=== PATIENT | male | born 1985 | race Caucasian/White ===

== ENCOUNTER 2018-04-03 14:15 | Emergency (ER) | payer BC, OTHER ==
[2018-04-03] MEDS ORDERED: Bacitracin Zinc 1 Packet ONE (14:36)
[2018-04-03] MEDS ORDERED: Adacel (T-DAP) 0.5 ML VIAL ONE (14:41)
== END 2018-04-03 14:59 | disposition home or self-care (01) ==
LOC: BURERS 14:15
DX: L02.212 Cutaneous abscess of back [any part, except buttock and flank] (principal); Z79.899 Other long term (current) drug therapy
CPT/HCPCS: 10060; 87070; 87205; 90471; 90715

== ENCOUNTER 2020-03-13 05:37 | Emergency (ER) | payer BC ==
[2020-03-13] MEDS ORDERED: Lidocaine 1% PF 5 ML VIAL ONE (06:00)
[2020-03-13] MEDS ORDERED: Bacitracin 1 PK ONE (06:01)
== END 2020-03-13 06:18 | disposition home or self-care (01) ==
LOC: BURERS 05:37
DX: L03.011 Cellulitis of right finger (principal); R73.03 Prediabetes; Z79.84 Long term (current) use of oral hypoglycemic drugs
CPT/HCPCS: 10060

== ENCOUNTER 2020-11-23 11:06 | Outpatient (CLI) | payer BC | END 2020-11-23 11:07 | disposition home or self-care (01) | LOC: BURRAD 11:06 | PROVIDERS: ATTEND Physician Assistant | DX: R20.2 Paresthesia of skin (principal) | CPT/HCPCS: 72040 ==

== ENCOUNTER 2022-07-12 17:07 | Emergency (ER) | payer BC | END 2022-07-12 17:35 | disposition home or self-care (01) | LOC: BURERS 17:07 | DX: M62.838 Other muscle spasm (principal); E66.9 Obesity, unspecified; F17.290 Nicotine dependence, other tobacco product, uncomplicated | CPT/HCPCS: 99283 ==

== ENCOUNTER 2025-07-25 14:23 | Emergency (ER) | payer BC ==
[2025-07-25 15:15] LABS: #Basophils 0.1 thou/uL (0.0-0.2); #Eosinophils 0.1 thou/uL (0.0-0.7); #Lymphocytes 2.2 thou/uL (1.20-3.40); #Monocytes 0.5 thou/uL (0.11-0.59); #Neutrophils 6.4 thou/uL (1.40-6.50); %Basophils 0.7 % (0.0-1.0); %Eosinophils 1.2 % (0.0-10.0); %Lymphocytes 24.1 % (21.0-51.0); %Monocytes 5.3 % (0.0-10.0); %Neutrophils 68.7 % (42.0-75.0); Hematocrit 46.9 % (42.0-52.0); Hemoglobin 15.2 g/dL (14.0-18.0); Mean Corpuscular Hemoglobin 27.8 pg (27.0-31.0); Mean Corpuscular Volume 85.8 fl (78.0-98.0); Platelet Count 358 10x3/uL (130-400); Red Blood Cell (RBC) Count 5.46 mill/uL (4.70-6.10); White Blood Cell (WBC) Count 9.3 10x3/uL (4.8-10.8)
[2025-07-25 15:34] LABS: ALT (SGPT) 32 U/L (Less than 45); AST (SGOT) 25 U/L (11-34); Albumin 4.1 g/dL (3.1-4.5); Alkaline Phosphatase 69 U/L (40-110); Anion Gap 16 mmol/L (10-20); BUN (Urea Nitrogen) 14 mg/dL (8.9-20.6); Bilirubin, Total 0.7 mg/dL (0.3-1.2); Calc. Creatinine Clearance 0 mL/min (70-130); Calcium 9.8 mg/dL (7.8-10.44); Carbon Dioxide 21 mmol/L (22-29); Chloride 104 mmol/L (98-107); Globulin 3.6 g/dL (2.4-3.5); Glucose 142 mg/dL (70-105); Lipase 25 U/L (8-78); Potassium 4.1 mmol/L (3.5-5.1); Sodium 137 mmol/L (136-145)
== END 2025-07-25 16:07 | disposition home or self-care (01) ==
LOC: BURERS 14:23
DX: K59.00 Constipation, unspecified (principal); T78.8XXA Other adverse effects, not elsewhere classified, initial encounter; I10 Essential (primary) hypertension; E11.9 Type 2 diabetes mellitus without complications; F17.290 Nicotine dependence, other tobacco product, uncomplicated; X58.XXXA Exposure to other specified factors, initial encounter
CPT/HCPCS: 36415; 74176; 80053; 83690; 85025